=== PATIENT | male | born 1970 | race Caucasian/White ===

== ENCOUNTER → 2016-11-12 | Outpatient (CLI) | payer OTHER ==
[~2016-11-12] MED LIST: BACT800T5 PO; CLIN1CAP6 PO; GABA300C5 PO; GABA600T PO
[2016-11-12 09:47] LABS: AUTOMATED NEUTROPHIL # 3.3 TH/MM3 (1.8-7.7); BASOPHIL # 0.1 TH/MM3 (0-0.2); BASOPHIL % 1.2 % (0.0-2.0); EOSINOPHIL # 0.1 TH/MM3 (0-0.4); EOSINOPHIL % 2.1 % (0.0-4.0); HEMATOCRIT 33.7 % (39.0-51.0); HEMO FLAGS DIFF FINAL; LYMPH % 20.6 % (9.0-44.0); LYMPHOCYTE # 1.1 TH/MM3 (1.0-4.8); MEAN CELL VOLUME 104.8 FL (80.0-100.0); MEAN CORPUSCULAR HEMOGLOBIN 36.3 PG (27.0-34.0); MEAN CORPUSCULAR HGB CONC 34.6 % (32.0-36.0); MONO % 12.1 % (0.0-8.0); PLATELET COUNT 276 TH/MM3 (150-450); RED BLOOD COUNT 3.21 MIL/MM3 (4.50-5.90); RED CELL DISTRIBUTION WIDTH 13.5 % (11.6-17.2); WHITE BLOOD COUNT 5.2 TH/MM3 (4.0-11.0)
[2016-11-12 10:14] LABS: ANION GAP 6 MEQ/L (5-15); BICARBONATE 27.1 MEQ/L (21.0-32.0); BLOOD UREA NITROGEN 5 MG/DL (7-18); CHLORIDE 102 MEQ/L (98-107); GLOMERULAR FILTRATION RATE 121 ML/MIN (>89); GLUCOSE,FASTING 91 MG/DL (74-99); POTASSIUM 4.2 MEQ/L (3.5-5.1); SODIUM (NA) 135 MEQ/L (136-145)
[2016-11-12 10:28] LABS: ALKALINE PHOSPHATASE 74 U/L (45-117); ALT (GPT) 75 U/L (12-78); AST (GOT) 135 U/L (15-37); HDL CHOLESTEROL 30.4 MG/DL (40.0-60.0); LDL CHOLESTEROL 104 MG/DL (0-99); TOTAL BILIRUBIN ADULT 0.6 MG/DL (0.2-1.0)
== END ==
LOC: CLAB 09:25
PROVIDERS: ATTEND Family Medicine
DX: M20.41 Other hammer toe(s) (acquired), right foot (principal); F10.10 Alcohol abuse, uncomplicated; Z72.0 Tobacco use; Z89.421 Acquired absence of other right toe(s)
CPT/HCPCS: 36415; 80053; 80061; 84443; 85025

== ENCOUNTER → 2016-11-18 | Outpatient (CLI) | payer OTHER | LOC: CLAB 10:50 | PROVIDERS: ATTEND Family Medicine | DX: F10.10 Alcohol abuse, uncomplicated (principal); R74.8 Abnormal levels of other serum enzymes; B95.7 Other staphylococcus as the cause of diseases classified elsewhere; B96.89 Other specified bacterial agents as the cause of diseases classified elsewhere | CPT/HCPCS: 36415; 80074; 86403; 87070; 87077; 87186; 87205 ==

== ENCOUNTER → 2016-11-30 | Outpatient (CLI) | payer OTHER ==
[~2016-11-30] MED LIST changes: -GABA300C5 PO
--- NOTE | 2016-11-30 10:12 | RADRPT ---
EXAM DATE/TIME: 11/30/2016 09:38 [facility] COMPARISON: No previous studies available for comparison. INDICATIONS : Hepatitis C. MEDICAL HISTORY : Hypertension. Hepatitis C. Arthritis. Osteomyelitis of right second toe. SURGICAL HISTORY : Right second toe amputation. ENCOUNTER: Initial ACUITY: 1 week PAIN SCORE: 0/10 LOCATION: Bilateral upper quadrant MEASUREMENTS: LIVER: 20.0 cm length COMMON DUCT: <3> mm RIGHT KIDNEY: 12.1 x 6.1 x 5.0 cm SPLEEN: 13.7 cm length FINDINGS: LIVER: Normal echotexture without focal lesion or ductal dilatation. Hepatopedal flow within the portal vein . COMMON DUCT: No intraluminal mass or stone visualized. GALLBLADDER: Contains no stones, demonstrates no wall thickening or pericholecystic fluid. PANCREAS: The visualized portions are within normal limits. RIGHT KIDNEY: No hydronephrosis, stone or mass. SPLEEN: No focal lesion. CONCLUSION: 1. Mild splenomegaly. 2. No acute abnormality. Jacobo Stack Jr., MD on November 30, 2016 at 10:08 Board Certified Radiologist. This report was verified electronically.
== END ==
LOC: HRAD 09:26
PROVIDERS: ATTEND Family Medicine
DX: B19.20 Unspecified viral hepatitis C without hepatic coma (principal)
CPT/HCPCS: 76705

== ENCOUNTER 2016-12-14 09:28 | Emergency (ER) | payer OTHER ==
[~2016-12-14] VITALS: Ht 203.2 cm; Wt 79.5 kg
[~2016-12-14 09:28] MED LIST changes: -BACT800T5 PO; -CLIN1CAP6 PO
[2016-12-14 09:29] VITALS: BP 176/111; PULSE 84; RESP 18; TEMP 98.1; O2SAT 100
[2016-12-14] MEDS ORDERED: PIPERACIL-TAZO 4.5 GM PREMIX 100 ML IV ONE (09:45)
--- NOTE | 2016-12-14 09:53 | PD ---
HPI Chief Complaint: Laceration/Skin Injury Time Seen by Provider: 09:45 Travel History International Travel<30 days: No Contact w/Intl Traveler<30days: No Traveled to known affect area: No History of Present Illness HPI Is a 46-year-old man who presents to the emergency room complaining of right second toe pain inflammation swelling and drainage. He is a history of the distal toe amputation because he has a hammertoe that is creating chronic wounds and osteomyelitis. There is a history of hepatitis C but no diabetes. He states he's been doctoring wound himself. He sees Dr. Azar for wound care. A couple weeks ago he was placed on antibiotics for a wound infection. He states over the past several days to toes, more red painful swollen and with more drainage. He has a chronic wound on the side of the toe where the great toe still rubs. No fevers or chills. He otherwise has been feeling generally well. History Past Medical History Narrative Medical Hepatitis C Social History Alcohol Use: No (hx of) Tobacco Use: Yes (1 PACK A DAY FOR 10 YEARS) Allergies-Medications (Allergen,Severity, Reaction): Coded Allergies: No Known Allergies (Verified , 12/14/16) Reported Meds & Prescriptions Reported Meds & Active Scripts Active Gabapentin 600 Mg Tab 600 Mg PO TID Review of Systems Except as stated in HPI: all other systems reviewed are Neg Physical Exam Narrative GENERAL: Well-appearing 46-year-old man, in no acute distress. SKIN: Warm and dry. CARDIOVASCULAR: Warm and well perfused. RESPIRATORY: Normal rate and effort. MUSCULOSKELETAL: Focused examination of the right foot reveals some generalized swelling to the right foot, minimal. There is erythema and edema to the right second toe. The distal toe is missing. There is a small approximately 2 mm ulcerated wound on the medial side of the toe. There is pain in the toe. Pain does track a little bit up above the toe. There is no obvious erythema or streaking redness up the foot. NEUROLOGICAL: Awake and alert. No gross deficits. Data Data Last Documented VS Vital Signs Date Time Temp Pulse Resp B/P Pulse Ox O2 Delivery O2 Flow Rate FiO2 12/14/16 09:29 98.1 84 18 176/111 100 Room Air Orders Complete Blood Count With Diff (12/14/16 09:45) Comprehensive Metabolic Panel (12/14/16 09:45) Westergren Sedimentation Rate (12/14/16 09:45) C-Reactive Protein (Crp) (12/14/16 09:45) Iv Access Insert/Monitor (12/14/16 09:45) Toe (Min 2vws) (12/14/16 ) Piperacil-Tazo 4.5 Gm Premix (Zosyn 4.5 (12/14/16 09:45) Labs Laboratory Tests Test 12/14/16 09:50 White Blood Count 9.5 TH/MM3 Red Blood Count 3.54 MIL/MM3 Hemoglobin 12.2 GM/DL Hematocrit 35.6 % Mean Corpuscular Volume 100.7 FL Mean Corpuscular Hemoglobin 34.5 PG Mean Corpuscular Hemoglobin 34.3 % Concent Red Cell Distribution Width 12.7 % Platelet Count 189 TH/MM3 Mean Platelet Volume 8.1 FL Neutrophils (%) (Auto) 75.5 % Lymphocytes (%) (Auto) 13.4 % Monocytes (%) (Auto) 9.0 % Eosinophils (%) (Auto) 1.1 % Basophils (%) (Auto) 1.0 % Neutrophils # (Auto) 7.1 TH/MM3 Lymphocytes # (Auto) 1.3 TH/MM3 Monocytes # (Auto) 0.8 TH/MM3 Eosinophils # (Auto) 0.1 TH/MM3 Basophils # (Auto) 0.1 TH/MM3 CBC Comment DIFF FINAL Differential Comment Erythrocyte Sedimentation Rate 52 mm/hr Sodium Level 136 MEQ/L Potassium Level 3.9 MEQ/L Chloride Level 104 MEQ/L Carbon Dioxide Level 26.1 MEQ/L Anion Gap 6 MEQ/L Blood Urea Nitrogen 8 MG/DL Creatinine 0.73 MG/DL Estimat Glomerular Filtration 115 ML/MIN Rate Random Glucose 90 MG/DL Calcium Level 8.8 MG/DL Total Bilirubin 0.4 MG/DL Aspartate Amino Transf 69 U/L (AST/SGOT) Alanine Aminotransferase 52 U/L (ALT/SGPT) Alkaline Phosphatase 69 U/L C-Reactive Protein LESS THAN 0.29 MG/DL Total Protein 8.2 GM/DL Albumin 3.4 GM/DL MDM Medical Decision Making Medical Screen Exam Complete: Yes Emergency Medical Condition: Yes Interpretation(s) LABS: CBC remarkable for mild anemia. Sedimentation rate 52. CMP unremarkable. CRP negative. X-ray toe: Prior amputation of second toe. Subacute to chronic fracture involving the middle phalanx of the second toe. Differential Diagnosis Toe infection, osteomyelitis, sepsis, other Narrative Course Medical decision making 46-year-old male presents to the emergency department with toe infection. Chronic wound there, concern for osteopenia. We'll check labs, x-ray, IV antibiotics. If labs are reassuring, trial of oral outpatient treatment. Diagnosis Primary Impression: Foot infection Additional Instructions: Take antibiotics as prescribed. Follow-up with your primary doctor for repeat evaluation in 2-4 days. Return to the emergency department for any worsening pain redness swelling or any other new or worsening symptoms. Med/Other Pt SpecificInfo: Prescription(s) given Scripts Sulfamethoxazole-Trimethoprim (Bactrim DS)800-160 Mg Tab1 Tab PO BID 10 Days Prov:Dany Keen MD 12/14/16 Clindamycin 300 Mg Scv138 Mg PO Q6H 10 Days Prov:Dany Keen MD 12/14/16 Disposition: 01 DISCHARGE HOME Condition: Stable Dany Keen MD December 14, 2016 09:53
[2016-12-14 10:05] LABS: AUTOMATED NEUTROPHIL # 7.1 TH/MM3 (1.8-7.7); BASOPHIL # 0.1 TH/MM3 (0-0.2); EOSINOPHIL # 0.1 TH/MM3 (0-0.4); EOSINOPHIL % 1.1 % (0.0-4.0); HEMATOCRIT 35.6 % (39.0-51.0); HEMO FLAGS DIFF FINAL; LYMPH % 13.4 % (9.0-44.0); LYMPHOCYTE # 1.3 TH/MM3 (1.0-4.8); MEAN CELL VOLUME 100.7 FL (80.0-100.0); MEAN CORPUSCULAR HEMOGLOBIN 34.5 PG (27.0-34.0); MEAN CORPUSCULAR HGB CONC 34.3 % (32.0-36.0); NEUT % 75.5 % (16.0-70.0); PLATELET COUNT 189 TH/MM3 (150-450); RED BLOOD COUNT 3.54 MIL/MM3 (4.50-5.90); RED CELL DISTRIBUTION WIDTH 12.7 % (11.6-17.2); WHITE BLOOD COUNT 9.5 TH/MM3 (4.0-11.0)
[2016-12-14 10:17] LABS: ANION GAP 6 MEQ/L (5-15); AST (GOT) 69 U/L (15-37); BICARBONATE 26.1 MEQ/L (21.0-32.0); BLOOD UREA NITROGEN 8 MG/DL (7-18); CHLORIDE 104 MEQ/L (98-107); GLOMERULAR FILTRATION RATE 115 ML/MIN (>89); POTASSIUM 3.9 MEQ/L (3.5-5.1); SODIUM (NA) 136 MEQ/L (136-145)
[2016-12-14 10:20] LABS: ALKALINE PHOSPHATASE 69 U/L (45-117); ALT (GPT) 52 U/L (12-78); TOTAL BILIRUBIN ADULT 0.4 MG/DL (0.2-1.0)
--- NOTE | 2016-12-14 10:25 | RADRPT ---
EXAM DATE/TIME: 12/14/2016 10:08 [facility] COMPARISON: No previous studies available for comparison. INDICATIONS : Right distal 2nd toe swelling and redness for 3 days. Previous amputation to the right 2nd toe Bev friend 2015. MEDICAL HISTORY : Hypertension. Hepatitis C. Arthritis. Osteomyelitis of right second toe. SURGICAL HISTORY : Right second toe amputation. ENCOUNTER: Initial ACUITY: 3 days PAIN SCORE: 9/10 LOCATION: Right distal 2nd toe. FINDINGS: 3 views of the right second toe show prior amputation of the middle and distal phalanges. There is a fracture through the distal aspects of the proximal phalanx. This is nondisplaced. There is callus fo rmation. No cortical destruction. No radiopaque foreign body. Soft tissues are unremarkable. Osteopen ia observed. CONCLUSION: 1. Prior amputation of the second toe as detailed above. 2. Subacute to chronic fracture involving the middle phalanx of the second toe. Jacobo Stack Jr., MD on December 14, 2016 at 10:21 Board Certified Radiologist. This report was verified electronically.
[2016-12-14] MEDS ORDERED: BACT800T5 PO (10:50)
[2016-12-14] MEDS ORDERED: CLIN1CAP6 PO (10:50)
[2016-12-14] MEDS ORDERED: ACETAMINOPHEN/HYDROcodone 325 MG/5 MG TAB PO ONE (11:00)
== END 2016-12-14 11:47 | disposition home or self-care (01) ==
LOC: NEPD 09:28
DX: L08.9 Local infection of the skin and subcutaneous tissue, unspecified (principal); Z86.19 Personal history of other infectious and parasitic diseases; Z87.891 Personal history of nicotine dependence
CPT/HCPCS: 73660; 80053; 85025; 85652; 86140; 96365; 99285; J2543; L3260

== ENCOUNTER 2017-03-04 19:19 | Emergency (ER) | payer OTHER ==
[~2017-03-04] VITALS: Ht 203.2 cm; Wt 90.0 kg
[~2017-03-04 19:19] MED LIST changes: +BACT800T5 PO; +CLIN1CAP6 PO
--- NOTE | 2017-03-04 19:46 | PD ---
HPI . Patient here requesting detox Chief Complaint: wants detox Time Seen by Provider: 19:46 Travel History International Travel<30 days: No Contact w/Intl Traveler<30days: No Traveled to known affect area: No History of Present Illness HPI 46 yr old male with long-standing history of alcoholism here requesting detox. Patient tells me that he would like to quit drinking. He's tried in the past, but has failed. He reports he drinks as much as he can get his hands on. He is ambulatory and answers all questions appropriately. He has no specific complaints today. PFSH Past Medical History Arthritis: Yes Hepatitis: Yes (c) Musculoskeletal: Yes Respiratory: Yes Past Surgical History Other Surgery: Yes (NASAL SURG/partial amputation second toe, R foot) Social History Alcohol Use: No (hx of) Tobacco Use: Yes (1 PACK A DAY FOR 10 YEARS) Substance Use: No Allergies-Medications (Allergen,Severity, Reaction): Coded Allergies: No Known Allergies (Verified , 12/23/16) Reported Meds & Prescriptions Reported Meds & Active Scripts Active Bactrim DS (Sulfamethoxazole-Trimethoprim) 800-160 Mg Tab 1 Tab PO BID 10 Days Clindamycin (Clindamycin HCl) 300 Mg Cap 300 Mg PO Q6H 10 Days Gabapentin 600 Mg Tab 600 Mg PO TID Review of Systems General / Constitutional: No: Fever Eyes: No: Visual changes HENT: No: Headaches Cardiovascular: No: Chest Pain or Discomfort Respiratory: No: Shortness of Breath Gastrointestinal: No: Abdominal Pain Genitourinary: No: Dysuria Musculoskeletal: No: Pain Skin: No Rash Neurologic: No: Weakness Psychiatric: No: Depression Endocrine: No: Polydipsia Hematologic/Lymphatic: No: Easy Bruising Physical Exam Narrative exam limited as it was done in ambulance [place], GENERAL: AAO x 3, no acute distress, Well-nourished, well-developed patient. Reeks of alcohol SKIN: Warm and dry. No visible rashes or bruising. HEAD: Normocephalic and atraumatic. EYES: No scleral icterus. No injection or drainage. EOM intact, NECK: Supple, trachea midline. No JVD. CARDIOVASCULAR: Regular rate and rhythm without murmurs, gallops, or rubs. RESPIRATORY: Breath sounds equal bilaterally. No accessory muscle use. No rhonchi or rales. GASTROINTESTINAL: Abdomen soft, non-tender, nondistended. EXTREMITIES: No cyanosis or edema. Fully ambulatory. BACK: Nontender without obvious deformity. No CVA tenderness. NEURO: CN II-12 intact, flight instructor strength normal b/l, UE and LE 5/5, no focal deficits PSYCH: AAO x 3, normal affect. Data Data Last Documented VS Vital Signs Date Time Temp Pulse Resp B/P Pulse Ox O2 Delivery O2 Flow Rate FiO2 03/04/17 19:51 98.5 88 18 167/109 98 MDM Medical Decision Making Medical Screen Exam Complete: Yes Emergency Medical Condition: Yes Medical Record Reviewed: Yes Differential Diagnosis Alcohol abuse, homelessness, alcohol intoxication Narrative Course 46-year-old male here requesting detox. I explained to patient that unfortunately we do not have a detox program here at the hospital. He was very understanding. I discussed with him [facility] and he was enthusiastic about the recommendation. He actually requested transportation there. He did not have any other complaints. Apparently patient had been Rosas acted for suicidal threats, ideation and homicidal threats. He voiced none of these issues to myself and Dr. Mckinney. Ralph act was lifted. Patient was cleared for discharge and advised follow up with [facility]. Diagnosis Primary Impression: Alcohol abuse Referrals: [facility] (Out patient) Patient Instructions: General Instructions Additional Instructions: Please follow up with [facility] for detox. Med/Other Pt SpecificInfo: No Change to Meds Disposition: 01 DISCHARGE HOME Condition: Stable Rima Graham Mar 04, 2017 19:46
[2017-03-04 19:51] VITALS: BP 167/109; PULSE 88; RESP 18; TEMP 98.5; O2SAT 98
--- NOTE | 2017-03-04 19:56 | PD ---
Data Data Last Documented VS Vital Signs Date Time Temp Pulse Resp B/P Pulse Ox O2 Delivery O2 Flow Rate FiO2 03/04/17 19:51 98.5 88 18 167/109 98 MDM Supervised Visit with MATIAS: Yes Narrative Course I, Dr. Mckinney, have reviewed the advance practice practioner's documentation and am in agreement, met with the patient face to face, made the diagnosis, and the medical decision making was done by me. *My assessment and Findings: Patient is a 46-year-old male who presents emergency department for alcohol intoxication and detox. Reportedly called police requesting alcohol detox, stating that he's been on a binge recently. Patient wants detox. He has been through several alcohol treatment programs in the past unsuccessfully. He drinks approximately 12 "Nattie daddy's"a day, as many as he can get his hands on. Per Rosas act form patient was depressed suicidal and homicidal and requesting detox. When I spoke with patient he denied any of these statements stating only that he wants detox. He does feel occasionally down and depressed but does not have any suicidal ideation, homicidal ideation, delusions, hallucinations or plan. Patient awake, alert, oriented. Able to ambulate independently in the emergency department without evidence of ataxia. Rosas act will be lifted by myself, and patient will be discharged to home with outpatient referral for alcohol treatment program. Diagnosis Primary Impression: Alcohol abuse Referrals: [facility] (Out patient) Patient Instructions: General Instructions Additional Instruction: Please follow up with [facility] for detox. Disposition: 01 DISCHARGE HOME Condition: Stable Coral Mckinney MD Mar 04, 2017 19:56
== END 2017-03-04 20:07 | disposition home or self-care (01) ==
LOC: NEDAMB 19:19
DX: F10.129 Alcohol abuse with intoxication, unspecified (principal); B19.20 Unspecified viral hepatitis C without hepatic coma
CPT/HCPCS: 99282

== ENCOUNTER 2017-11-03 17:55 | Emergency (ER) | payer OTHER ==
[~2017-11-03 17:55] MED LIST changes: -BACT800T5 PO; -CLIN1CAP6 PO; +MEDI220T PO
[2017-11-03 18:03] VITALS: BP 147/95; PULSE 99; RESP 16; TEMP 98.9; O2SAT 99
--- NOTE | 2017-11-03 19:37 | PD ---
HPI Chief Complaint: Laceration/Skin Injury Time Seen by Provider: 19:36 Travel History International Travel<30 days: No Contact w/Intl Traveler<30days: No Traveled to known affect area: No History of Present Illness HPI 47-year-old male with history of hypertension who is currently homeless, presents emergency department for evaluation of a laceration to the left lower extremity. Patient states he caught his leg on a piece of sheet metal earlier today. He states he has been unable to get the small laceration to stop bleeding. Denies any pain. States he is up-to-date on his tetanus vaccination. Denies any anticoagulation therapy however he is an alcoholic. Patient has no other symptoms to report. PFSH Past Medical History Arthritis: Yes Hepatitis: Yes (c) Musculoskeletal: Yes Respiratory: Yes Past Surgical History Other Surgery: Yes (NASAL SURG/partial amputation second toe, R foot) Social History Alcohol Use: No (hx of) Tobacco Use: Yes (1 PACK A DAY FOR 10 YEARS) Substance Use: No Allergies-Medications (Allergen,Severity, Reaction): Coded Allergies: No Known Allergies (Verified , 04/19/17) Reported Meds & Prescriptions Reported Meds & Active Scripts Active No Active Prescriptions or Reported Medications Review of Systems Except as stated in HPI: all other systems reviewed are Neg Physical Exam Narrative GENERAL: Well-nourished, well-developed male patient, ambulatory with a non- ataxic gait, in no acute distress. SKIN: Focused skin assessment warm/dry. 1-1/2 cm laceration to the left distal lower extremity, distal to the left knee. Actively bleeding. HEAD: Normocephalic. EYES: No scleral icterus. No injection or drainage. NECK: Supple, trachea midline. No JVD or lymphadenopathy. CARDIOVASCULAR: Regular rate and rhythm without murmurs, gallops, or rubs. RESPIRATORY: Breath sounds equal bilaterally. No accessory muscle use. MUSCULOSKELETAL: No cyanosis, or edema. Patient has full flexion-extension of the knee and ankle to the affected extremity. Distal pulses are palpable. Cap refills within normal limits. BACK: Nontender without obvious deformity. No CVA tenderness. Data Data Last Documented VS Vital Signs Date Time Temp Pulse Resp B/P (MAP) Pulse Ox O2 Delivery O2 Flow Rate FiO2 11/03/17 18:03 98.9 99 16 147/95 (112) 99 Orders Orders Ed Discharge Order (11/03/17 19:52) [facility] Medical Decision Making Medical Screen Exam Complete: Yes Emergency Medical Condition: Yes Medical Record Reviewed: Yes Differential Diagnosis Laceration superficial versus deep versus abrasion versus avulsion Narrative Course 47-year-old male presents emergency department for evaluation of a laceration to the left distal lower extremity, sustained running today. Patient appears without distress. The laceration is actively bleeding. 3 rhianna are placed and bleeding is stopped. Patient will be started empirically on oral antibiotics due to homelessness and uncertainty of what exactly he cut himself on. He has provided wound care. He is counseled on care. He agrees to return immediately with any acute worsening symptoms. Procedures Procedure Narrative LACERATION LOCATION: Left lower extremity LENGTH: 1-1/2 cm NUMBER OF STITCHES/RHIANNA: 3 rhianna REPAIR: The area of the laceration was prepped with Betadine and sterilely draped. The wound was copiously irrigated and explored without evidence of foreign body, tendon injury or neurovascular injury. The wound was closed using rhianna. This was a single layer repair. A sterile dressing was applied. The patient was advised to keep the dressing clean and dry. Patient tolerated the procedure well. Diagnosis Primary Impression: Leg laceration Qualified Codes: S81.812A - Laceration without foreign body, left lower leg, initial encounter Referrals: [facility] Patient Instructions: Acute Wound Care (DC), General Instructions Additional Instructions: Keep the area clean and dry Do not remove your dressing until tomorrow Rhianna are to be removed in 10 days. This can be done in the emergency department or at the primary care provider's office Return immediately with any acute worsening of symptoms Med/Other Pt SpecificInfo: Prescription(s) given Scripts Cephalexin (Keflex) 500 Mg Cap 500 MG PO Q6H for Infection for 5 Days, #20 CAP 0 Refills Prov: Earnestine Vasquez 11/03/17 Disposition: 01 DISCHARGE HOME Condition: Stable Earnestine Vasquez Nov 03, 2017 19:37
[2017-11-03] MEDS ORDERED: CEPH-460 PO (19:57)
[2017-11-03] MEDS ORDERED: CEPHALEXIN MONOHYDRATE 500 MG CAP PO ONE (20:15)
== END 2017-11-03 21:24 | disposition home or self-care (01) ==
LOC: NEPD 17:55
DX: S81.812A Laceration without foreign body, left lower leg, initial encounter (principal); W26.9XXA Contact with unspecified sharp object(s), initial encounter; I10 Essential (primary) hypertension; F10.20 Alcohol dependence, uncomplicated; B19.20 Unspecified viral hepatitis C without hepatic coma; F17.200 Nicotine dependence, unspecified, uncomplicated; Z59.0 Homelessness
CPT/HCPCS: 12001

== ENCOUNTER 2017-11-15 13:02 | Emergency (ER) | payer SELFPAY ==
[~2017-11-15] VITALS: Ht 203.2 cm; Wt 81.8 kg
[~2017-11-15 13:02] MED LIST changes: +CEPH-460 PO; -GABA600T PO; -MEDI220T PO
[2017-11-15 13:06] VITALS: BP 171/91; PULSE 108; RESP 18; TEMP 98.5; O2SAT 99
[2017-11-15] MEDS ORDERED: NEUR300C PO (13:21)
--- NOTE | 2017-11-15 13:27 | PD ---
HPI Chief Complaint: Wound/Suture/Staple Re-Check Time Seen by Provider: 13:17 Travel History International Travel<30 days: No Contact w/Intl Traveler<30days: No Traveled to known affect area: No History of Present Illness HPI 47-year-old male presents emergency department for follow-up recent laceration to the left medial knee. Patient was here on 03 November, and received 3 chris to a laceration into this area. He was treated with Keflex. He states it is healed well and has no complaints. He does have complaints of ongoing bilateral lower extremity neuropathy for which he used to take gabapentin 600 mg 3 times daily, and he is requesting a refill if possible. Patient states he is in the process of obtaining a local primary care physician, as he used to see Dr. Azar. He says he tried [facility] but he does not like them. He has no known drug allergies. PFSH Past Medical History Arthritis: Yes Hepatitis: Yes (c) Musculoskeletal: Yes Respiratory: Yes Past Surgical History Other Surgery: Yes (NASAL SURG/partial amputation second toe, R foot) Social History Alcohol Use: No (hx of) Tobacco Use: Yes (1 PACK A DAY FOR 10 YEARS) Substance Use: No Allergies-Medications (Allergen,Severity, Reaction): Coded Allergies: No Known Allergies (Verified , 04/19/17) Reported Meds & Prescriptions Reported Meds & Active Scripts Active Neurontin (Gabapentin) 300 Mg Cap 300 Mg PO TID Keflex (Cephalexin) 500 Mg Cap 500 Mg PO Q6H 5 Days Review of Systems Except as stated in HPI: all other systems reviewed are Neg General / Constitutional: No: Fever Eyes: No: Visual changes HENT: No: Headaches Cardiovascular: No: Chest Pain or Discomfort Respiratory: No: Shortness of Breath Gastrointestinal: No: Abdominal Pain Genitourinary: No: Dysuria Musculoskeletal: No: Pain Skin: No Rash Neurologic: Positive: Paresthesia, Other (Lower extremity neuralgia.), No: Weakness Psychiatric: No: Depression Endocrine: No: Polydipsia Hematologic/Lymphatic: No: Easy Bruising Physical Exam Narrative GENERAL: Patient appears in no acute distress. SKIN: Warm and dry. Normal color. Normal turgor. Patient has a well-healed linear laceration to the left medial knee with [address] There is no sign of wound dehiscence or cellulitis. HEAD: Atraumatic. Normocephalic. EYES: Pupils equal and round. No scleral icterus. No injection or drainage. ENT: No nasal bleeding or discharge. Mucous membranes pink and moist. Pharynx is clear. Airways patent. NECK: Trachea midline. Supple and nontender per CARDIOVASCULAR: Regular rate and rhythm. RESPIRATORY: No accessory muscle use. Clear to auscultation. Breath sounds equal bilaterally. GASTROINTESTINAL: Abdomen soft, non-tender, nondistended. Hepatic and splenic margins not palpable. MUSCULOSKELETAL: Extremities without clubbing, cyanosis, or edema. No obvious deformities. NEUROLOGICAL: Awake and alert. No obvious cranial nerve deficits. Motor grossly within normal limits. Five out of 5 muscle strength in the arms and legs. Normal speech. PSYCHIATRIC: Appropriate mood and affect; insight and judgment normal. Data Data Last Documented VS Vital Signs Date Time Temp Pulse Resp B/P (MAP) Pulse Ox O2 Delivery O2 Flow Rate FiO2 11/15/17 13:06 98.5 108 18 171/91 (117) 99 MDM Medical Decision Making Medical Screen Exam Complete: Yes Emergency Medical Condition: Yes Medical Record Reviewed: Yes Differential Diagnosis Left medial knee laceration. Wound check. Staple removal. Chronic lower extremity neuralgia. Narrative Course Chris are removed without difficulty and Band-Aid was placed. Patient is given refill of his gabapentin 300 mg 3 times daily #90 Further refills should be obtained from local primary care physician Diagnosis Primary Impression: Encounter for removal of chris Additional Impression: Lower extremity neuropathy Qualified Codes: G57.93 - Unspecified mononeuropathy of bilateral lower limbs Patient Instructions: Gabapentin (By mouth), General Instructions Additional Instructions: Justin are removed without difficulty and Band-Aid was placed. Patient is given refill of his gabapentin 300 mg 3 times daily #90 Further refills should be obtained from local primary care physician Med/Other Pt SpecificInfo: Prescription(s) given, Wound Care Scripts Gabapentin (Neurontin) 300 Mg Cap 300 MG PO TID, #90 CAP 0 Refills Prov: Mark Davidson MD 11/15/17 Disposition: 01 DISCHARGE HOME Condition: Stable Panfilo Bender Nov 15, 2017 13:27
== END 2017-11-15 13:39 | disposition home or self-care (01) ==
LOC: NEPK 13:02
DX: S81.012D Laceration without foreign body, left knee, subsequent encounter (principal); X58.XXXD Exposure to other specified factors, subsequent encounter; G57.93 Unspecified mononeuropathy of bilateral lower limbs; Z48.02 Encounter for removal of sutures
CPT/HCPCS: 99281